=== PATIENT | female | born 1970 | race Caucasian/White ===

== ENCOUNTER 2017-07-16 12:07 | Emergency (ER) | payer BC ==
[2017-07-16 12:07] VITALS: BP 118/72
[2017-07-16 12:15] VITALS: BMI 39.4
[2017-07-16 12:59] LABS: BILIRUBIN,URINE NEGATIVE (NEGATIVE); BLOOD/HEMOGLOBIN,URINE NEGATIVE (NEGATIVE); GLUCOSE, URINE NEGATIVE (NEGATIVE); KETONES,URINE NEGATIVE (NEGATIVE); LEUKOCYTE ESTERASE ,URINE 1+ (NEGATIVE); NITRITES,URINE NEGATIVE (NEGATIVE); PROTEIN,URINE NEGATIVE (NEGATIVE); UROBILINOGEN,URINE NORMAL (NORMAL)
[2017-07-16 13:05] LABS: APPEARANCE,URINE CLEAR (CLEAR); BACTERIA,URINE TRACE /HPF (NEGATIVE); COLOR,URINE YELLOW (YELLOW); RBC,URINE 0-2 /HPF (NEGATIVE); SQUAMOUS EPITHELIAL CELL,UR RARE /HPF (NEGATIVE)
--- NOTE | 2017-07-16 13:19 | ED.ABDFE ---
HPI - Time seen Time seen: 13:15 - PCP Primary Care Physician: ALESSIO - HPI Comment HPI Comment: PATIENT HAVE HAVE HAD BILIARY DUCT OBSTRUCTION PREVIOUSLY AND PAIN IS SIMILAR TO THAT PAIN. STARTED ONE WEEK AGO AND WAS IMPROVE WITH BLAND DIET. ATE REGULAR FOOD LAST NIGHT. INCREASING PAIN, NAUSEA AND FEVER SINCE. HER DOCTOR WANTED HER TO COME TO ED FOR EVALUATION. - Complaint Chief Complaint Doctors Comments: EPIGASTRIC PAIN TIMES ONE WEEK. Chief Complaint:: PT C/O EPIGASTRIC PAIN THAT STARTED LAST WEEK.. AND THAT SHE WAS EATING A BLAND DIET AND SHE ATE FOOD LASTNIGHT AND THAT SHE STARTED HURTING WITH PAIN AND PRESSURE AND FEVER,, - Nurses notes reviewed Nurses Notes Review: Yes - Source History Provided: Patient - Mode of arrival Mode of Arrival: Ambulatory - Timing Onset of Chief Complaint: 07/16/17 Came on: Gradually - Duration Duration: Constant Duration: Days - Location Location: Epigastric - Severity Severity: Moderate - Quality Quality: Sharp - Context Onset: Suddenly History of: Abdominal surgery, Similar pain (dx) - Modifying Worsening Factors: Food Improving Factors: Nothing - Associated signs and symptoms Associated Signs and Symptoms: Nausea PMH - PMH Past Medical History: No Past Surgical History: Yes Surgical History: Cholecystectomy Past Surgical History Comment: COMMON BILE DUCT AND SEVERAL REPAIRS, TUBAL . - Family History History of Family Medical Conditions: No Family Medical History: Cancer - Social History Does patient currently use any type of tobacco product: No Have you used tobacco products in the last 12 months: No Type of Tobacco Use: None Does any household member use tobacco: No Alcohol Use: None Do you use any recreational Drugs:: No Lives With: Family Lives Where: Home - infectious screening In the last 2 months have you had wt loss of >10#?: NO Have you had fever, night sweats or hemotysis?: No Have you traveled outside the country in the last 6 months?: No Isolation: Standard ROS - Review of Systems Constitutional: Fever, Weakness, Fatigue. negative: Chills Eyes: negative: Eye Pain, Discharge ENTM: No Symptoms Reported. negative: Ear Pain, Nose Discharge, Nose Congestion , Throat Pain Respiratoy: negative: Productive Cough, Short of Breath, Wheezing Cardiovascular: No Symptoms Reported Gastrointestinal/Abdominal: Abdominal Pain, Nausea Genitourinary: No Symptoms Reported Neurological: No Symptoms Reported Musculoskeletal: No Symptoms Reported Integumentary: No Symptoms Reported Hematologic/Lymphatic: No Symptoms Reported Endocrine: No Symptoms Reported All Other Systems: Reviewed and Negative PE - Vital Signs Vitals: Temperature 98.3 F Pulse Rate 115 Respiratory Rate 18 Blood Pressure 118/72 O2 Sat by Pulse Oximetry 99 - General Limitations: No Limitations General Appearance: Alert - Head Head Exam: Normal Inspection - Eyes Eye exam: Normal Appearance - ENT ENT Exam: Normal External Ear Exam - Neck Neck Exam: Trachea Midline - Chest Chest Inspection: Symmetric Chest Wall Rise - Respiratory Respiratory Exam: Normal Lung Sounds Bilat Respiratory Exam: Bilateral Clear to Auscultation - Cardiovascular Cardiovascular Exam: Regular Rate, Normal Rhythm, Normal Heart Sounds - Abdominal Exam Abdominal Exam: Normal Bowel Sounds, Soft, Tenderness Abdominal Tenderness: Epigastrium, Moderate - Rectal Rectal Exam: Deferred - Back Back Exam: Normal Inspection - Extremeties Extremities Exam: Normal Inspection - External Exam: Female: Deferred : Speculum Exam (Female): Deferred : Bimanual Exam (female): Deferred - Neurologic Neurological Exam: Alert, Oriented X3 - Psychiatric Psychiatric Exam: Normal Affect, Normal Mood - Skin Skin Exam: Normal Color MDM - Differential Diagnosis Differential Diagnosis- Considerations may include:: Diverticular disease, Esophagitis, Gastritus/PUD, Pancreatitis, Urinary obstruction, Urinary tract infection, Urolithiasis Course - Treatment Treatment: SEE ORDERS. - Consultation Consultation Comments: DR. ROBERTO, GI ELECTRONIC WIRER SAID PATIENT HAVE HAD BILIARY ANASTOMOSIS WITH GI TRACT. COULD EXPLAIN AIR. PATIENT WILL SEE HIM IN THE OFFICE IN AM. - Education/Counseling Education/Counseling: Patient, Family, Education Educated On: Diagnosis, Needs for Follow Up ROR - Labs Reviewed Laboratory Results Reviewed?: Yes Result Diagrams: 07/16/17 13:31 07/16/17 13:31 Laboratory: WBC 14.5 X10^3/uL (3.6-10.0) H 07/16/17 13:31 RBC 5.13 X10^6/uL (3.5-5.4) 07/16/17 13:31 Hgb 14.5 g/dL (12.0-16.0) 07/16/17 13:31 Hct 42.8 % (36.0-47.0) 07/16/17 13:31 MCV 83.5 fL (80.0-100.0) 07/16/17 13:31 MCH 28.4 pg (27.0-34.0) 07/16/17 13:31 MCHC 34.0 g/dL (33.0-35.0) 07/16/17 13:31 RDW 13.9 % (11.6-16.5) 07/16/17 13:31 Plt Count 305 X10^3/uL (150.0-450.0) 07/16/17 13:31 Plt Count Comment Adequate (ADEQUATE) 07/16/17 13:31 MPV 7.7 fL (7.4-11.0) 07/16/17 13:31 Neut % 91.8 % (42.0-75.0) H 07/16/17 13:31 Lymph % 4.3 % (21.0-51.0) L 07/16/17 13:31 [place] % 3.6 % (0.0-13.0) 07/16/17 13:31 Eos % 0.0 % (0.9-2.9) L 07/16/17 13:31 Baso % 0.3 % (0.2-1.0) 07/16/17 13:31 Neut # 13.3 x10^3/uL (2.2-4.8) H 07/16/17 13:31 Lymph # 0.6 X10^3/uL (1.3-2.9) L 07/16/17 13:31 [place] # 0.5 x10^3/uL (0.3-0.8) 07/16/17 13:31 Eos # 0.0 x10^3/uL (0.0-0.2) 07/16/17 13:31 Baso # 0.0 X10^3/uL (0.0-0.1) 07/16/17 13:31 Absolute Nucleated RBC 0.0 /100WBC 07/16/17 13:31 Total Counted 100 07/16/17 13:31 Neutrophils % (Manual) 91 % (39-76) H 07/16/17 13:31 Lymphocytes % (Manual) 8 % (13-43) L 07/16/17 13:31 Monocytes % (Manual) 1 % (4-9) L 07/16/17 13:31 Plt Morphology Comment Normal (NORMAL) 07/16/17 13:31 RBC Morphology Normal (NORMAL) 07/16/17 13:31 Sodium 137 mmol/L (136-145) 07/16/17 13:31 Corrected Sodium TNP 07/16/17 13:31 Potassium 4.2 mmol/L (3.5-5.1) 07/16/17 13:31 Chloride 102 mmol/L (98-107) 07/16/17 13:31 Carbon Dioxide 28.6 mmol/L (21-32) 07/16/17 13:31 BUN 7 mg/dL (7-18) 07/16/17 13:31 Creatinine 0.84 mg/dL (0.55-1.02) 07/16/17 13:31 Est GFR (MDRD) Af Amer > 60 (>60) 07/16/17 13:31 Est GFR (MDRD) Non-Af > 60 (>60) 07/16/17 13:31 Glucose 107 mg/dL (65-99) H 07/16/17 13:31 Calcium 8.9 mg/dL (8.5-10.1) 07/16/17 13:31 Corrected Calcium TNP 07/16/17 13:31 Total Bilirubin 0.50 mg/dL (0.2-1.0) 07/16/17 13:31 AST 33 Units/L (15-37) 07/16/17 13:31 ALT 90 Units/L (12-78) H 07/16/17 13:31 Alkaline Phosphatase 153 Units/L (46-116) H 07/16/17 13:31 Total Protein 7.9 g/dL (6.4-8.2) 07/16/17 13:31 Albumin 3.7 g/dL (3.4-5.0) 07/16/17 13:31 Globulin 4.2 g/dL (2.5-4.5) 07/16/17 13:31 Albumin/Globulin Ratio 0.9 Ratio (1.1-2.1) L 07/16/17 13:31 Amylase 29 Units/L (25-115) 07/16/17 13:31 Lipase 97 Units/L (73-393) 07/16/17 13:31 Specimen Type Clean catch urine 07/16/17 12:52 Urine Color Yellow (YELLOW) 07/16/17 12:52 Urine Appearance Clear (CLEAR) 07/16/17 12:52 Urine pH 7.0 (5.0 - 8.0) 07/16/17 12:52 Ur Specific [place] 1.005 (1.000-1.030) 07/16/17 12:52 Urine Protein Negative (NEGATIVE) 07/16/17 12:52 Urine Glucose (UA) Negative (NEGATIVE) 07/16/17 12:52 Urine Ketones Negative (NEGATIVE) 07/16/17 12:52 Urine Occult Blood Negative (NEGATIVE) 07/16/17 12:52 Urine Nitrite Negative (NEGATIVE) 07/16/17 12:52 Urine Bilirubin Negative (NEGATIVE) 07/16/17 12:52 Urine Urobilinogen Normal (NORMAL) 07/16/17 12:52 Ur Leukocyte Esterase 1+ (NEGATIVE) 07/16/17 12:52 Urine RBC 0-2 /HPF (NEGATIVE) 07/16/17 12:52 Urine WBC 0-2 /HPF (NEGATIVE) 07/16/17 12:52 Ur Squamous Epith Cells Rare /HPF (NEGATIVE) 07/16/17 12:52 Urine Bacteria Trace /HPF (NEGATIVE) 07/16/17 12:52 Ur Culture Indicated? No/not indicated 07/16/17 12:52 - XRAY XRAY Interpreted by: Radiologist XRAY Findings: REPORT DISCUSS WITH PATIENT. - Diagnosis Discharge Problem: Abdominal pain, Pneumobilia - Discharge Plan Disposition: 01 HOME, SELF-CARE Condition: Stable - Follow ups/Referrals Follow ups/Referrals: [facility],None [Primary Care Provider] - 07/17/17 - Instructions Instructions: Abdominal Pain, Adult, [id number] Additional Instructions: RETURN TO ED IF WORSE. YOU HAVE SURGERY PREVIOUSLY THAT CAN CAUSE THE AIR IN THE GALL BLADDER SYSTEM. SEE DR. ROBERTO IN AM.
[2017-07-16 13:38] LABS: BASOPHILS % (AUTO) 0.3 % (0.2-1.0); HEMATOCRIT 42.8 % (36.0-47.0); HEMOGLOBIN 14.5 g/dL (12.0-16.0); LYMPHOCYTES # (AUTO) 0.6 X10^3/uL (1.3-2.9); LYMPHOCYTES % (AUTO) 4.3 % (21.0-51.0); MEAN CORPUSCULAR HEMOGLOBIN 28.4 pg (27.0-34.0); MEAN CORPUSCULAR VOLUME 83.5 fL (80.0-100.0); MEAN PLATELET VOLUME 7.7 fL (7.4-11.0); MONOCYTES # (AUTO) 0.5 x10^3/uL (0.3-0.8); MONOCYTES % (AUTO) 3.6 % (0.0-13.0); NEUTROPHILS # (AUTO) 13.3 x10^3/uL (2.2-4.8); NEUTROPHILS % (AUTO) 91.8 % (42.0-75.0); PLATELET COUNT 305 X10^3/uL (150.0-450.0); RED BLOOD COUNT 5.13 X10^6/uL (3.5-5.4); RED CELL DISTRIBUTION WIDTH 13.9 % (11.6-16.5); WHITE BLOOD COUNT 14.5 X10^3/uL (3.6-10.0)
[2017-07-16 13:57] LABS: ALANINE AMINOTRANSFERASE 90 Units/L (12-78); ALBUMIN 3.7 g/dL (3.4-5.0); ALKALINE PHOSPHATASE 153 Units/L (46-116); AMYLASE 29 Units/L (25-115); ASPARTATE AMINO TRANSFERASE 33 Units/L (15-37); BLOOD UREA NITROGEN 7 mg/dL (7-18); CALCIUM 8.9 mg/dL (8.5-10.1); CARBON DIOXIDE 28.6 mmol/L (21-32); CHLORIDE 102 mmol/L (98-107); CREATININE 0.84 mg/dL (0.55-1.02); LIPASE 97 Units/L (73-393); SODIUM 137 mmol/L (136-145); TOTAL PROTEIN 7.9 g/dL (6.4-8.2); eGFR BLACK RACES > 60 (>60); eGFR NON BLACK RACES > 60 (>60)
[2017-07-16 14:19] LABS: PLATELET MORPHOLOGY COMMENT NORMAL (NORMAL)
--- NOTE | 2017-07-16 15:15 | CT ---
HISTORY: Epigastric pain Study: CT abdomen and pelvis without contrast Comparison: None Technique: Multiple axial images of the abdomen and pelvis were obtained from the lung bases to the pubic symphy sis without the administration of IV contrast. Findings: The visualized portions of the lung bases are unremarkable. The liver demonstrates a minimal amount of pneumobilia. Correlation with recent instrumentation is requested. The gallbladder is surgically a bsent with clips noted in the gallbladder fossa. The presence of air within the liver appears to be c entral and does not demonstrate evidence for portal venous gas. In addition, no pneumatosis can be id entified within the colon or small bowel. A surgical anastomosis is incidentally noted within central abdomen. Correlation with surgical history is requested. The spleen, pancreas, kidneys, and adrenal glands appear unremarkable in their noncontrast CT appearance. No significant mesenteric lymphadenopathy or stranding can be observed. No free fluid or free air is seen within the abdomen. The appendix is unremarkable in its CT appearance. No bowel wall thickenin g or bowel dilatation is present. Scattered diverticuli throughout the sigmoid colon are observed wi thout CT evidence for acute diverticulitis.. The urinary bladder is grossly unremarkable. The bony s tructures are grossly intact. IMPRESSION: 1. A minimal amount of pneumobilia is observed without definite etiology identified on this noncontr ast CT of the abdomen and pelvis. Correlation with the recent instrumentation such as sphincterotomy for EGD is requested. 2. Surgical anastomosis within the central abdomen is noted for which correlation with surgical histo ry is requested. 3. Diffuse diverticular changes of the sigmoid colon without CT evidence for acute diverticulitis. Reported By:
== END 2017-07-16 17:13 | disposition home or self-care (01) ==
LOC: ER 12:40
DX: K83.8 Other specified diseases of biliary tract (principal); R10.13 Epigastric pain
CPT/HCPCS: 36415; 74176; 80053; 81001; 82150; 83690; 85025; 99283